=== PATIENT | male | born 1990 | race Caucasian/White ===

== ENCOUNTER → 2021-06-01 10:38 | Outpatient (CLI) | payer OTHER, SELFPAY | PROVIDERS: Visit Provider Nurse Practitioner | DX: U07.1 COVID-19 (principal) | CPT/HCPCS: C9803; U0003; U0005 ==

== ENCOUNTER 2023-04-29 11:45 | Emergency (ER) | payer OTHER, SELFPAY ==
[2023-04-29 11:46] VITALS: BP 153/100; PULSE 85; RESP 17; TEMP 36.8; O2SAT 98; BMI 41.0
--- NOTE | 2023-04-29 12:02 | PC.NURSE ---
pt's left hand is soaking in chlorhexidine solution
--- NOTE | 2023-04-29 12:05 | XR_ITS ---
PROCEDURE INFORMATION: Exam: XR Left Hand Exam date and time: 04/29/2023 12:05 PM Age: 32 years old Clinical indication: Injury or trauma; Patient HX: Dog bite to left hand, small lacerations noted. ; Additional info: Dog bite L hand TECHNIQUE: Imaging protocol: Radiologic exam of the left hand. Views: 3 or more views. COMPARISON: No relevant prior studies available. FINDINGS: Bones/joints: Osseous structures are intact. No fracture or malalignment. Visualized joint surfaces are preserved. Soft tissues: Unremarkable. IMPRESSION: Negative exam. No acute bony abnormalities.
--- NOTE | 2023-04-29 12:24 | HMH.EDGENADL ---
Discharge Plan Disposition Patient Disposition: Home, Self-Care Condition: Good Prescriptions Prescriptions: New amoxicillin-pot clavulanate 875-125 mg tablet 1 tab PO BID Qty: 20 0RF No Action Zepbound 2.5 mg/0.5 mL pen injector 2.5 mg SQ WEEKLY Referrals Follow up/Referrals: Fritz Abernathy [Primary Care Provider] - See instructions Activity Restrictions/Add. Instructions Additional Instructions/Restrictions: You were evaluated in the emergency department today. You were given a tetanus shot today. 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 Keep your wound clean and dry. Do not submerge under any water. Do not scrub or use harsh chemicals such as peroxide or alcohol on your hand. Return to the emergency department for new or worsening symptoms. Clinical Impressions Clinical Impression: Dog bite of left hand Qualifiers: Encounter type: initial encounter Qualified Code(s): S61.452A - Open bite of left hand, initial encounter Instructions Patient Instructions: Animal Bites, DI for Laceration Repair Discharge ED Provider: Kaela Will General Adult HPI General Chief complaint: Animal Bite Stated complaint: AO 04/29/23 11:30 dog bite left hand Time Seen by Provider: 04/29/23 11:51 Mode of Arrival: Family Vehicle Source of Information: Patient Limitations: No Limitations Description of Symptoms (Recalled from ER Triage Doc. by RN): Pt presents to ER for eval of left hand wound from a dog bite. States it was his dog that bit him while he was petting her head. There is several small abrasions and 1 puncture wound between 4th & 5th digits. Unsure if his tetanus is UTD. 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 History of Present Illness HPI narrative: This patient is a 32-year-old male who denies significant past medical history presenting to the emergency department for evaluation with concern for dog bite to the left hand. He states that their pet large mixed breed dog at home bit his left hand while he was petting her head. They note that the dog is up-to-date on vaccinations. Patient is unsure when his last tetanus shot was. He has superficial wounds and a puncture wound to the left hand without numbness, tingling, or limited range of motion. No other concerns noted at this time. Related Data Home Medications Medication Instructions Recorded Confirmed tirzepatide (weight loss) 2.5 2.5 mg SQ WEEKLY 04/29/23 04/29/23 mg/0.5 mL subcutaneous pen injector (Zepbound) Previous Rx's Medication Instructions Recorded amoxicillin 875 mg-potassium 1 tab PO BID #20 tabs 04/29/23 clavulanate 125 mg tablet Allergies Allergy/AdvReac Type Severity Reaction Status Date / Time No Known Allergies Allergy Verified 04/29/23 12:04 [facility] Disclaimer: The information contained in this section may have been updated after the patient was seen, as this information can be updated by other users. Social History (Updated 04/29/23 @ 12:45 by Tierney Rose RN) Smoking Status: Light tobacco smoker tobacco type: cigars alcohol intake: never current occupational status: employed Travel in the last 8 weeks: None ROS Obtained: Yes All systems reviewed & no additional complaints except as documented Physical Exam General General appearance: alert and in no apparent distress Head Head exam: atraumatic and normocephalic Eye Eye exam: Present normal appearance, PERRL and EOMI ENT ENT exam: Present normal exam, normal oropharynx, mucous membranes moist and normal external ear exam Neck Neck exam: Present normal inspection, full ROM and trachea midline; Absent tenderness Chest Chest inspection: Present normal inspection and symmetric chest wall rise; Absent tenderness Respiratory Respiratory exam: Present normal lung sounds bilaterally; Absent respiratory distress, wheezes, stridor or accessory musc
[2023-04-29 13:15] VITALS: BP 138/70; PULSE 70; RESP 20; TEMP 37.1; O2SAT 97
== END 2023-04-29 13:16 | disposition home or self-care (01) ==
PROVIDERS: Emergency Provider Emergency Medicine; PCP Pediatrics
DX: S61.452A Open bite of left hand, initial encounter (principal); W54.0XXA Bitten by dog, initial encounter; F17.290 Nicotine dependence, other tobacco product, uncomplicated
CPT/HCPCS: 12002; 73130; 90471; 90715; 99283